=== PATIENT | female | born 1940 | race Two or more races ===

== ENCOUNTER 2021-10-27 13:39 | Emergency (ER) | payer OTHER ==
[~2021-10-27] VITALS: Ht 154.9 cm; Wt 68.0 kg
[2021-10-27] MEDS ORDERED: FARXIGA10 MG PO (14:08)
[2021-10-27] MEDS ORDERED: LANTUS SOL100 UNIT/1 SQ (14:08)
[2021-10-27] MEDS ORDERED: GLIPIZIDE10 MG PO (14:08)
[2021-10-27] MEDS ORDERED: LISINOPRIL40 MG PO (14:09)
[2021-10-27] MEDS ORDERED: LEVOTHYROXINE88 MCG PO (14:09)
[2021-10-27] MEDS ORDERED: ROSUVASTATIN CAL5 MG PO (14:09)
== END 2021-10-27 17:37 | disposition home or self-care (01) ==
LOC: ER 13:39
DX: S09.90XA Unspecified injury of head, initial encounter (principal); W18.2XXA Fall in (into) shower or empty bathtub, initial encounter; Y93.F1 Activity, caregiving, bathing; Y92.012 Bathroom of single-family (private) house as the place of occurrence of the external cause